=== PATIENT | female | born 1990 | race Caucasian/White ===

== ENCOUNTER 2023-08-19 06:00 | Day surgery (SDC) | payer SELFPAY ==
[2023-07-25 13:22] LABS: Hematocrit 39.6 % (37-47); Hemoglobin 12.7 g/dL (12.0-15.0); Mean Corp Hgb Conc 32.1 g/dL (32-36); Mean Corpuscular Hgb 27.4 pg (27.0-32.0); Mean Corpuscular Volume 85.3 fL (81-99); Mean Platelet Vol. 10.7 fl (6.2-12.0); Platelet Count 130 K/mm3 (150-450); RBC Distribution Width CV 13.1 % (11.6-14.6); RBC Distribution Width SD 40.3 fl (35.1-43.9); Red Blood Count 4.64 M/mm3 (4.2-5.4); White Blood Count 3.9 K/mm3 (4.4-11.0)
[2023-07-25 13:38] LABS: Amphetamine Urine VISTA NEGATIVE (<1000 ng/mL); Barbiturate Urine VISTA NEGATIVE (< 200 ng/mL); Benzodiazepine Urine VISTA NEGATIVE (< 200 ng/mL); Cocaine Urine VISTA NEGATIVE (< 300 ng/mL); Ecstacy Urine VISTA NEGATIVE (< 500 ng/mL); Methadone Urine VISTA NEGATIVE (< 300 ng/mL); PCP Urine VISTA NEGATIVE (< 25 ng/mL); THC Urine VISTA NEGATIVE (< 50 ng/mL); Vista UDS pH Range 6
[2023-07-25 13:47] LABS: Anion Gap 3 (5-15); BUN 13 mg/dL (7-18); BUN/Creat Ratio 20.6 RATIO (10-20); Calcium,Total 9.2 mg/dL (8.5-10.1); Chloride 107 mmol/L (98-107); Creatinine, Serum 0.63 mg/dL (0.55-1.02); EST Glomerular Filtration Rate 114 mL/min (>60); Est Glom Filt Rate - Afr Amer 138 mL/min (>60); Glucose 83 mg/dL (74-106); Potassium 3.9 mmol/L (3.5-5.1); Sodium Level 141 mmol/L (136-145)
[2023-08-19] VITALS (9 sets, daily range): BP systolic 105–135; BP diastolic 57–98; PULSE 12–70; RESP 14–100; TEMP 11.1–36.6; O2SAT 97–100; BMI 25.9
[2023-08-19] MEDS: Lactated Ringers 1,000 ML 15 ML IV ×2 (06:41→13:27)
--- NOTE | 2023-08-19 07:23 | PCM.HP.BLA ---
History and Physical Date of Admission: 08/19/23 Pt examined and there are no changes to H&P of 08/11/23. Informed consent obtained. Pt for abdominoplasty. Assessment & Plan Assessment/Plan (1) Lipodystrophy: (2) Atrophic skin: PLAN: Plan for abdominoplasty
[2023-08-19] MEDS: Cefazolin 2 GM in 0.9% Normal Saline (100mL Bag) 100 ML IV (07:30)
[2023-08-19] MEDS: Methylene Blue 1% 100 MG/10 ML VIAL (08:11)
[2023-08-19] MEDS: Gentamicin 80 MG/2 ML Vial (08:11)
[2023-08-19] MEDS: Bupivacaine 0.25% 30 ML Vial (12:24)
--- NOTE | 2023-08-19 12:53 | DCINST_ITS ---
Discharge Instructions Diet Discharge Diet: No restrictions Dressing / Incision Additional Dressing/Incision Instructions:: Keep back elevated (recliner position)--do not lie flat. Empty and record ROSHAN drainage 2-3 x a day. Follow instructions given in the office. Follow Up Care Test Results: Test results from this visit will be discussed in further detail at your follow- up appointment, if applicable. Discharge Plan Admission Attending Provider: Letty Sharpe Primary Care Provider: Tiff Farrar Discharge Orders/Prescriptions Prescriptions: No Action cephalexin 500 mg capsule 500 mg PO BID Qty: 14 0RF Referrals / Follow Up: Tiff Farrar MD [Primary Care Provider] - Disposition Disposition (needs filled in before D/C Order can be placed): Home, Self Care
--- NOTE | 2023-08-19 12:58 | PCM.OPRPT ---
Problems Associated Problem List Diagnoses (1) Lipodystrophy: (2) Atrophic skin: Report of Operation Date of Procedure: 08/19/23 Pre-Operative Diagnosis: Abdominal skin laxity status post weight loss Post-Operative Diagnosis: Same Surgery/Procedure Performed:: Abdominoplasty including the extended skin excision and muscle plication Surgeon: Letty Sharpe key punch operator: DASHA COONEYhydraulic tester Type of Anesthesia: General Drains: ROSHAN x2 Estimated Blood Loss (mL): 75cc Description of Procedure: The procedure of abdominoplasty was reviewed with the patient and informed consent obtained. She is marked in the preop holding area prior to surgery. The potential risk and complications of surgery have been reviewed which include but are not exclusive of bleeding, infection, pain, numbness, asymmetry, scar tissue, skin necrosis, the need for further surgery, DVT, and even . She is brought to the operating room and placed under general anesthesia in the supine position. Care is taken to pad all pressure points, apply sequential compression stockings, a Arias catheter, and a warming blanket. We initially start with making the premarked incision. This is carried down through the subcutaneous tissue until the abdominal fascia is identified. Dissection then continued cephalad to the umbilicus. The umbilicus is circumscribed with a cuff of adipose tissue maintained. Above the umbilicus dissection continues cephalad to the xiphoid. The wound is irrigated with antibiotic solution and checked for hemostasis which is controlled with argon coagulation. At this point the patient is placed in a semi-Fowlers position and the skin demarcated for the amount to be removed. The skin is removed using argon coagulation. Again meticulous hemostasis is maintained. The medial edges of the rectus abdominis muscle are demarcated and this is plicated using [id number] Nurolon sutures to plicate along the length of the midline. The umbilicus is tacked to the abdominal fascia in order to allow eventual umbilication for for natural appearance. 2 ROSHAN drains were brought out through separate stab incisions and laid beneath the flap. These are anchored in place with a nylon suture. The skin is then initially tacked together with skin clips. Following this, Vicryl sutures are used in a [id number] fashion to tack the deep subcutaneous tissue. The incision is then closed in 3 layers using a barbed suture. A 2.5 cm ovoid incision is made in the midline and the umbilicus brought out through this incision. The skin edges are approximated using a Monocryl suture in a subcuticular fashion. The skin edges are all approximated in a subcuticular fashion. The incision is injected with quarter percent plain Marcaine. Xeroform is placed on the incision along with ABDs. She is then placed in an abdominal binder. She tolerated the procedure well and was taken to the recovery area in an awakening in stable condition. Needle and sponge counts are correct. Complications None Admit VTE Documentation VTE Present on Admission: Yes VTE Mechan Device Prophylaxis: SCD's
[2023-08-19] MEDS: Acetaminophen 325 MG Tablet 650 MG PO (16:50)
== END 2023-08-19 17:14 | disposition home or self-care (01) ==
LOC: SDC 06:01 → AC 06:11
PROVIDERS: PCP Family Medicine; Referring Provider Plastic Surgery; Visit Provider Plastic Surgery
PROC: (CPT 15830; principal; 2023-08-19 07:15)
DX: E88.1 Lipodystrophy, not elsewhere classified (principal); L90.9 Atrophic disorder of skin, unspecified
CPT/HCPCS: 15830; 00802; 36415; 80048; 80307; 85027; J7120; C1729; J2405